=== PATIENT | male | born 1960 | race Hispanic/Latino ===

== ENCOUNTER 2016-09-28 10:25 | Day surgery (SDC) | payer OTHER ==
[~2016-09-28] VITALS: Ht 167.6 cm; Wt 93.0 kg
[~2016-09-28 10:25] MED LIST: 0.9% Sodium Chloride 1,000 ML IV PRN; Sodium Chloride LOK Flush 10 mL Syringe IV PRN; fentaNYL-PF 50 mCg/mL 2 mL Inj IVPUSH PRN
[2016-09-28 11:02] VITALS: BP 123/85; PULSE 79; RESP 17; O2SAT 95
[2016-09-28] MEDS ORDERED: No current meds (11:29)
[2016-09-28 12:17] VITALS: BP 130/74; PULSE 74; RESP 12; O2SAT 97
[2016-09-28 12:25] VITALS: BP 126/74; PULSE 76; RESP 12; O2SAT 98
--- NOTE | 2016-09-28 13:45 | ENDO ---
[address] [address] ENDOSCOPY PROCEDURE PATIENT: KIRA GAMBINO : 1960 MR#: [id number] ADMIT: 09/28/2016 JOB ID: [id number] DATE OF SERVICE: 09/28/2016 PROCEDURE PERFORMED: Colonoscopy. INDICATIONS: Left lower quadrant pain. ASA CLASSIFICATION: The patient's ASA classification is II. MALLAMPATI SCORE: Mallampati score was 2. MEDICATIONS: 1. Versed 2 mg. 2. Fentanyl 50 mcg. INSTRUMENT USED: PCF-H180AL. PREPARATION QUALITY: Good. PROCEDURE DETAILS: After informed consent was obtained, the patient was brought into the GI suite, where he was placed on oxygen via nasal cannula and monitored with continuous pulse oximeter, telemetry, and blood pressure monitoring. A time-out was performed. Then, he was placed in the left lateral decubitus position and medications were administered for sedation. Digital rectal exam was performed which was unremarkable. The colonoscope was then inserted into the rectum and advanced under direct visualization to the cecum, which was identified by the presence of the ileocecal valve and appendiceal orifice. Once the cecum was reached, the colonoscope was withdrawn back into the rectum, as the mucosa and lumen were examined. In the rectum, retroflexion was performed. Following retroflexion, remaining air in the rectum was suctioned, and procedure was completed. FINDINGS: In the transverse colon, there were three polyps. The larger polyp measured approximately 6 mm and was sessile, and was removed with a hot snare. The remaining polyps were diminutive, and they were both removed with a cold biopsy forceps. The remainder of the colon exam was otherwise unremarkable. IMPRESSION: Three transverse colon polyps. RECOMMENDATIONS: 1. Avoid NSAIDs and anticoagulants for 72 hours. 2. Follow up in GI clinic. 3. Repeat colonoscopy pending polyp pathology results. COMPLICATIONS: None. ESTIMATED BLOOD LOSS: Less than 5 mL.
--- NOTE | 2016-09-29 16:12 | PATH ---
SURGICAL PATHOLOGY Attending Physician:Naveed Acosta CASE STATUS: Signed Out PATIENT NAME: KIRA GAMBINO PID: [id number] : 1960 DATE COLLECTED:09/28/2016 20:26 SPECIMEN: Colon, Biopsy CLINICAL HISTORY: 1). TRANSVERSE COLON POLYPS FINAL DIAGNOSIS: Transverse Colon, Polyps, Biopsies: Portions of tubular adenoma x4; negative for high-grade dysplasia. Superficial portion of colorectal mucosa x1 with a prominent lymphoid aggregate. ICD10: K63.5 GROSS DESCRIPTION: The specimen is received in one formalin filled container labeled with the patient's name, sublabeled "transverse colon polyps" and consists of 5 portions of tissue which aggregate to 0.6 x 0.5 x 0.3 CM. The specimen is entirely submitted in one cassette. 09/28/2016 [facility] ICD-9 CODES: CPT CODES: 1: 88051 Electronically Signed Out Teresita Zapien MD [facility] Pathology [facility] [address], [place] [address] Technical component performed at [facility], [facility] [address], [address]
== END 2016-09-28 23:59 | disposition home or self-care (01) ==
LOC: END 10:25
PROVIDERS: ATTEND Internal Medicine Gastroenterology
DX: D12.3 Benign neoplasm of transverse colon (principal); R10.32 Left lower quadrant pain; K57.30 Diverticulosis of large intestine without perforation or abscess without bleeding
CPT/HCPCS: 45380; 45385; 88305; G0500; J7030